=== PATIENT | female | born 1965 | race Caucasian/White ===

== ENCOUNTER → 2017-04-17 | Outpatient (CLI) | payer BC ==
--- NOTE | 2017-04-27 16:24 | WOMENS IMAGING REPORT ---
EXAM DESCRIPTION: BILAT SCREENING MAMMO W/CAD COMPLETED DATE/TIME: 04/17/2017 8:36 am REASON FOR STUDY: ROUTINE BILATERAL SCREENING;Z12.31 Z12.31 ENCNTR SCREEN MAMMOGRAM FOR MALIGNANT N EOPLASM OF ANTHONY COMPARISON: 04/30/2011 outside facility. TECHNIQUE: Standard craniocaudal and mediolateral oblique views of each breast recorded using Right90a l acquisition. LIMITATIONS: None. FINDINGS: No masses, calcifications or architectural distortion. No areas of suspicion. Read with the assistance of CAD. .[facility] - R2 Cenova Version 1.3 .[facility] - R2 Cenova Version 1.3 .[facility] - R2 Cenova Version 2.4 .[facility] [place] R2 Cenova Version 2.4 .[facility] - R2 [employer] Version 9.2 IMPRESSION: NORMAL MAMMOGRAM. BIRADS 1. BREAST DENSITY: b. There are scattered areas of fibroglandular density. BIRAD: 1 NEGATIVE RECOMMENDATION: ROUTINE SCREENING COMMENT: The patient has been notified of the results by letter per MQSA requirements. Additional no tification policies are in place for contacting patient with suspicious or incomplete findings. Quality ID #225: The [employer] recommends an annual screening mammogram for women aged 40 years or over. This facility utilizes a reminder system to ensure that all patients receive reminder letters, and/or direct phone calls for appointments. This includes reminders for routine scr eening mammograms, diagnostic mammograms, or other Breast Imaging Interventions when appropriate. Th is patient will be placed in the appropriate reminder system. The [employer] (ACR) has developed recommendations for screening MRI of the breast s in certain patient populations, to be used in conjunction with mammography. Breast MRI surveillanc e may be appropriate for women with more than 20% lifetime risk of developing breast cancer as deter mined by genetic testing, significant family history of the disease, or history of mantle radiation f or Hodgkins Disease. ACR Practice Guidelines 2008. TECHNICAL DOCUMENTATION: FINDING NUMBER: (1) ASSESSMENT: (1) JOB ID: [id number] [employer]- All Rights Reserved
== END ==
LOC: WI 07:19
PROVIDERS: ATTEND Physician Assistant
DX: Z12.31 Encounter for screening mammogram for malignant neoplasm of breast (principal)
CPT/HCPCS: 77067; G0202

== ENCOUNTER → 2018-02-02 | Outpatient (CLI) | payer BC ==
--- NOTE | 2018-02-02 08:18 | WOMENS IMAGING REPORT ---
EXAM DESCRIPTION: TRANSVAGINAL ULTRASOUND COMPLETED DATE/TIME: 02/02/2018 7:49 am REASON FOR STUDY: R10.32 LLQ PAIN R10.32 LEFT LOWER QUADRANT PAIN COMPARISON: None. TECHNIQUE: Dynamic and static grayscale images acquired of the pelvis via transvaginal approach and recorded on PACS. Additional selected color Doppler and spectral images recorded. LIMITATIONS: None. FINDINGS: UTERUS: Not seen, status post hysterectomy. RIGHT OVARY AND DOPPLER: 2.1 cm hypoechoic roughly ovoid lesion is likely a cyst. This is likely sli ghtly complicated, internal echoes within the cyst. LEFT OVARY AND DOPPLER: Normal size. No mass. FREE FLUID: None noted. OTHER: No other significant finding. MEASUREMENTS: RIGHT OVARY: 3.6 x 2.2 x 3.2 cm. LEFT OVARY: 2.6 x 2.0 x 3.0 cm. IMPRESSION: 2.1 cm probable hemorrhagic right ovarian cyst. Doubtful clinical significance in a pat ient of this age. Given the history of pelvic pain, surveillance followup may be warranted. See bel ow. Status post hysterectomy. Followup of asymptomatic indeterminate ovarian cysts detected by ultrasound in PREMENOPAUSAL patient s Cyst with findings suggestive of, but not classic for, hemorrhagic cyst, endometrioma or dermoid: *6-12 week followup US; if not a resolving hemorrhagic cyst, continued US or MRI followup; if endomet rioma or dermoid still not confirmed, consider surgical consultation Note: If cyst is clinically symptomatic or otherwise concerning, other followup may be warranted. Based on recommendations of the Society for Radiologists in Ultrasound Consensus Conference Statement 2010 on management of asymptomatic ovarian and other adnexal cysts imaged at ultrasound. TECHNICAL DOCUMENTATION: JOB ID: [id number] [employer]- All Rights Reserved Rev Reading location - IP/workstation name: [email or web address]
== END ==
LOC: WI 07:00
PROVIDERS: ATTEND Physician Assistant
DX: R10.32 Left lower quadrant pain (principal); Z90.710 Acquired absence of both cervix and uterus
CPT/HCPCS: 76830

== ENCOUNTER → 2019-05-09 | Outpatient (CLI) | payer OTHER ==
[2019-05-09 15:36] LABS: ABSOLUTE EOSINOPHILS # (AUTO) 0.1 10^3/uL (0.0-0.6); ABSOLUTE LYMPHOCYTES (AUTO) 1.4 10^3/uL (0.5-4.7); ABSOLUTE MONOCYTES (AUTO) 0.7 10^3/uL (0.1-1.4); BASOPHILS % (AUTO) 0.2 % (0-2); EOSINOPHILS % (AUTO) 1.7 % (0-6); HEMATOCRIT 36.8 % (36.0-47.0); HEMOGLOBIN 12.4 g/dL (12.0-15.5); LYMPHOCYTES % (AUTO) 19.2 % (13-45); MEAN CORPUSCULAR HEMOGLOBIN 28.6 pg (27.0-33.4); MEAN CORPUSCULAR HGB CONC 33.8 g/dL (32.0-36.0); MEAN CORPUSCULAR VOLUME 85 fl (80-97); PLATELET COUNT 197 10^3/uL (150-450); RED BLOOD COUNT 4.35 10^6/uL (3.72-5.28); SEGMENTED NEUTROPHILS % (AUTO) 68.9 % (42-78); TOTAL CELLS COUNTED % (AUTO) 100 %; WHITE BLOOD COUNT 7.3 10^3/uL (4.0-10.5)
--- NOTE | 2019-05-09 15:48 | RADIOLOGY REPORT (SQ) ---
EXAM DESCRIPTION: CT ABD/PELVIS WITH IV ORAL COMPLETED DATE/TIME: 05/09/2019 3:04 pm REASON FOR STUDY: LLQ ABDOMINAL PAIN R10.32 LEFT LOWER QUADRANT PAIN COMPARISON: None. TECHNIQUE: CT scan of the abdomen and pelvis performed using helical scanning technique with dynamic intravenous contrast injection. Patient drank oral contrast. Images reviewed with lung, soft tissue , and bone windows. Reconstructed coronal and sagittal MPR images reviewed. Delayed images for evalua tion of the urinary system also acquired. All images stored on PACS. All CT scanners at this facility use dose modulation, iterative reconstruction, and/or weight based d osing when appropriate to reduce radiation dose to as low as reasonably achievable (ALARA). [facility]: Dose Right [facility]: CareDose [facility]: Dose Right [facility]: Teradose 4D [facility]: [employer] CONTRAST TYPE AND DOSE: contrast/concentration: Isovue 350.00 mg/ml; Total Contrast Delivered: 86.0 ml; Total Saline Delivered: 69.0 ml RENAL FUNCTION: Creatinine 0.7 RADIATION DOSE: CT Rad equipment meets quality standard of care and radiation dose reduction techniq ues were employed. CTDIvol: 9.9 - 13.9 mGy. DLP: 1254 mGy-cm.. LIMITATIONS: None. FINDINGS: Along the distal the sigmoid colon in the deep left pelvis, there is inflammatory soft tis av stranding in the pelvic fat, and mildly enlarged left pelvic lymph nodes. Heavy burden of coloni c diverticulosis in this area, with a air in the vagina on axial images 69-74. Patient did not have a pelvic exam today according to office notes, findings are worrisome for diverticulitis with colovag inal fistula formation. No discrete abscess is identified. Findings discussed with LIAM Sylvester. LOWER CHEST: No significant findings. No nodules or infiltrates. LIVER: Normal size. No masses. No dilated ducts. SPLEEN: Normal size. No focal lesions. PANCREAS: No masses. No significant calcifications. No adjacent inflammation or peripancreatic fluid collections. Pancreatic duct not dilated. GALLBLADDER: Surgically absent ADRENAL GLANDS: No significant masses or asymmetry. RIGHT KIDNEY AND URETER: No solid masses. No significant calcifications. No hydronephrosis or hyd roureter. LEFT KIDNEY AND URETER: No solid masses. No significant calcifications. No hydronephrosis or hydr oureter. AORTA AND VESSELS: No aneurysm. No dissection. Renal arteries, SMA, celiac without stenosis. RETROPERITONEUM: No retroperitoneal adenopathy, hemorrhage or masses. BOWEL AND PERITONEAL CAVITY: Patient drank oral contrast. No CT evidence of bowel obstruction or adriana e intraperitoneal air or fluid. Oral contrast had not yet reached the descending colon at the time o f scanning. There is a heavy burden of colonic diverticulosis along the descending and sigmoid colon . Sigmoid colon diverticulitis with possible colovaginal fistula formation as above. No pelvic absc ess. APPENDIX: Normal. PELVIS: No mass. No free fluid. Normal bladder. Post hysterectomy. Right ovary not identified. Le ft ovary adjacent to the area of inflammation in the deep left pelvis on axial image 63/91. ABDOMINAL WALL: No masses. No hernias. BONES: No significant or acute findings. OTHER: No other significant finding. IMPRESSION: Inflammation in the deep left pelvis along the distal descending/ proximal sigmoid colon with possible colovaginal fistula formation. No discrete abscess TECHNICAL DOCUMENTATION: JOB ID: [id number] Quality ID # [id number]: Final reports with documentation of one or more dose reduction techniques (e.g., Au tomated exposure control, adjustment of the mA and/or kV according to patient size, use of iterative reconstruction technique) 2010 [employer]- All Rights Reserved Reading location - IP/workstation name: [email or web address]
[2019-05-09 15:54] LABS: ALBUMIN 3.7 g/dL (3.5-5.0); ALKALINE PHOSPHATASE 56 U/L (38-126); ANION GAP 7 (5-19); ASPARTATE AMINO TRANSFERASE 20 U/L (14-36); BILIRUBIN,DIRECT 0.1 mg/dL (0.0-0.4); BLOOD UREA NITROGEN 10 mg/dL (7-20); CALCIUM 9.3 mg/dL (8.4-10.2); CARBON DIOXIDE 28 mmol/L (22-30); CHLORIDE 102 mmol/L (98-107); GLUCOSE 98 mg/dL (75-110); POTASSIUM 4.2 mmol/L (3.6-5.0); TOTAL PROTEIN 6.7 g/dL (6.3-8.2)
== END ==
LOC: RAD 11:48
PROVIDERS: ATTEND Physician Assistant
DX: K57.30 Diverticulosis of large intestine without perforation or abscess without bleeding (principal); R10.32 Left lower quadrant pain
CPT/HCPCS: 36415; 74177; 80053; 82565; 83690; 85025

== ENCOUNTER 2019-07-01 05:24 | Inpatient (IN) | payer OTHER ==
[2019-06-24 11:32] LABS: ABSOLUTE EOSINOPHILS # (AUTO) 0.1 10^3/uL (0.0-0.6); ABSOLUTE LYMPHOCYTES (AUTO) 1.3 10^3/uL (0.5-4.7); ABSOLUTE MONOCYTES (AUTO) 0.5 10^3/uL (0.1-1.4); ABSOLUTE NEUT (AUTO) 2.7 10^3/uL (1.7-8.2); BASOPHILS % (AUTO) 0.5 % (0-2); EOSINOPHILS % (AUTO) 2.9 % (0-6); HEMATOCRIT 35.6 % (36.0-47.0); HEMOGLOBIN 12.1 g/dL (12.0-15.5); LYMPHOCYTES % (AUTO) 27.6 % (13-45); MEAN CORPUSCULAR HEMOGLOBIN 28.7 pg (27.0-33.4); MEAN CORPUSCULAR HGB CONC 34.1 g/dL (32.0-36.0); MEAN CORPUSCULAR VOLUME 84 fl (80-97); MONOCYTES % (AUTO) 11.4 % (3-13); PLATELET COUNT 216 10^3/uL (150-450); RED BLOOD COUNT 4.23 10^6/uL (3.72-5.28); RED CELL DISTRIBUTION WIDTH 14.3 % (11.5-14.0); SEGMENTED NEUTROPHILS % (AUTO) 57.6 % (42-78); TOTAL CELLS COUNTED % (AUTO) 100 %; WHITE BLOOD COUNT 4.7 10^3/uL (4.0-10.5)
--- NOTE | 2019-06-24 11:45 | RADIOLOGY REPORT (SQ) ---
EXAM DESCRIPTION: CHEST PA/LATERAL COMPLETED DATE/TIME: 06/24/2019 11:09 am REASON FOR STUDY: PRE-OP COMPARISON: None. EXAM PARAMETERS: NUMBER OF VIEWS: two views TECHNIQUE: Digital Frontal and Lateral radiographic views of the chest acquired. RADIATION DOSE: NA LIMITATIONS: none FINDINGS: LUNGS AND PLEURA: No opacities, masses or pneumothorax. No pleural effusion. MEDIASTINUM AND HILAR STRUCTURES: No masses or contour abnormalities. HEART AND VASCULAR STRUCTURES: Heart normal size. No evidence for failure. BONES: No acute findings. HARDWARE: None in the chest. OTHER: No other significant finding. IMPRESSION: NO SIGNIFICANT RADIOGRAPHIC FINDING IN THE CHEST. TECHNICAL DOCUMENTATION: JOB ID: [id number] [employer]- All Rights Reserved Reading location - IP/workstation name: [email or web address]
[2019-06-24 11:56] LABS: ANION GAP 7 (5-19); BLOOD UREA NITROGEN 13 mg/dL (7-20); CARBON DIOXIDE 27 mmol/L (22-30); CHLORIDE 108 mmol/L (98-107); GLUCOSE 73 mg/dL (75-110); POTASSIUM 4.5 mmol/L (3.6-5.0)
--- NOTE | 2019-06-24 19:12 | EKG REPORT ---
SEVERITY:- NORMAL ECG - SINUS RHYTHM : Confirmed by: Sully Goins MD 24-Jun-2019 19:12:01
[~2019-07-01 05:24] MED LIST: ACETAMINOPHEN 325 MG TABLET ONE; LACTATED RINGERS 1000 ML IV PRN; PREGABALIN 50 MG CAPSULE ONE
[2019-07-01] MEDS ORDERED: CEFOXITIN INJ 2 GM VIAL ONE ×3 (05:26→11:02)
[2019-07-01] MEDS ORDERED: HYDROMORPHONE HCL INJ/PF 2 MG/ML AMPULE ONE (07:13)
[2019-07-01] MEDS ORDERED: FENTANYL CITRATE INJ/PF 250 MCG/5 ML AMPULE ONE (07:13)
[2019-07-01] MEDS ORDERED: MIDAZOLAM 2 MG/2 ML INJ ONE (07:13)
[2019-07-01] MEDS ORDERED: PROPOFOL INJ 200 MG/20 ML VIAL IV ONE (07:14)
[2019-07-01] MEDS ORDERED: IBUPROFEN 800 MG in NORMAL SALINE 250 ML IV PRN (07:21)
[2019-07-01] MEDS ORDERED: PREGABALIN 50 MG CAPSULE PO PRN (07:22)
[2019-07-01] MEDS ORDERED: ACETAMINOPHEN 325 MG TABLET PO PRN (07:22)
[2019-07-01] MEDS ORDERED: BUPIVACAINE HCL 0.25 % INJ/PF (2.5 MG/1 ML) 30 ML VIAL ONE ×2 (07:47→10:39)
[2019-07-01] MEDS ORDERED: ONDANSETRON HCL INJ/PF 4 MG/2 ML SDV ONE (09:16)
[2019-07-01] MEDS ORDERED: SUCCINYLCHOLINE CHLORIDE INJ 200 MG/10 ML VIAL ONE (09:16)
[2019-07-01] MEDS ORDERED: ROCURONIUM BROMIDE INJ 50 MG/5 ML VIAL IV ONE (09:16)
[2019-07-01] MEDS ORDERED: DEXAMETHASONE SOD PHOSPHATE INJ 4 MG/1 ML VIAL ONE (09:16)
[2019-07-01] MEDS ORDERED: DIPHENHYDRAMINE HCL 50 MG/ML VIAL IV PRN (09:27)
[2019-07-01] MEDS ORDERED: MEPERIDINE HCL/PF INJ 25 MG/1 ML DISP.SYRIN IV PRN (09:27)
[2019-07-01] MEDS ORDERED: FENTANYL CITRATE INJ/PF 100 MCG/2 ML AMPUL IV PRN ×3 (09:27)
[2019-07-01] MEDS ORDERED: PROMETHAZINE HCL INJ 25 MG/1 ML VIAL IV PRN ×2 (09:27)
[2019-07-01] MEDS ORDERED: METHYLENE BLUE 50 MG/10 ML AMPULE ONE (11:35)
[2019-07-01] MEDS ORDERED: SUGAMMADEX SODIUM 200 MG/2 ML SDV IV ONE (11:42)
[2019-07-01] MEDS ORDERED: EPHEDRINE SULFATE INJ 50 MG/1 ML AMPULE ONE (12:42)
[2019-07-01] MEDS ORDERED: LIDOCAINE 2% INJ-PF (100 MG/5 ML) SYRINGE ONE (12:43)
[2019-07-01] MEDS ORDERED: ONDANSETRON HCL INJ/PF 4 MG/2 ML SDV IV PRN (12:43)
[2019-07-01] MEDS ORDERED: DEXTROSE 5%-LACTATED RINGERS 1,000 ML IV PRN (12:43)
[2019-07-01] MEDS ORDERED: MORPHINE SULFATE 10 MG/ML INJ IV PRN (12:43)
[2019-07-01] MEDS: FENTANYL CITRATE INJ/PF 100 MCG/2 ML AMPUL ONE ×2 (13:16→13:23)
[2019-07-01] MEDS ORDERED: ACETAMINOPHEN 1,000 MG/100 ML RTUPB IV ONE ×2 (13:20→13:30)
[2019-07-01] MEDS: KETOROLAC TROMETHAMINE INJ/PF 30 MG/1 ML SDV IV SCH ×2 (15:23→22:19)
[2019-07-01] MEDS: CEFOXITIN SODIUM 2 GM in DEXTROSE 5%-WATER 100 ML IV SCH (17:25)
[2019-07-01] MEDS: FAMOTIDINE INJ/PF 20 MG/2 ML SDV IV SCH (22:19)
[2019-07-02] MEDS ORDERED: NORMAL SALINE 1000 ML 1,000 ML IV ONE (00:15)
[2019-07-02] MEDS: CEFOXITIN SODIUM 2 GM in DEXTROSE 5%-WATER 100 ML IV SCH (01:23)
[2019-07-02 05:08] LABS: ABSOLUTE LYMPHOCYTES (AUTO) 0.9 10^3/uL (0.5-4.7); ABSOLUTE MONOCYTES (AUTO) 1.1 10^3/uL (0.1-1.4); ABSOLUTE NEUT (AUTO) 8.4 10^3/uL (1.7-8.2); BASOPHILS % (AUTO) 0.1 % (0-2); HEMATOCRIT 29.1 % (36.0-47.0); HEMOGLOBIN 10.3 g/dL (12.0-15.5); LYMPHOCYTES % (AUTO) 8.4 % (13-45); MEAN CORPUSCULAR HEMOGLOBIN 29.8 pg (27.0-33.4); MEAN CORPUSCULAR HGB CONC 35.3 g/dL (32.0-36.0); MEAN CORPUSCULAR VOLUME 84 fl (80-97); MONOCYTES % (AUTO) 10.5 % (3-13); PLATELET COUNT 170 10^3/uL (150-450); RED BLOOD COUNT 3.46 10^6/uL (3.72-5.28); RED CELL DISTRIBUTION WIDTH 14.7 % (11.5-14.0); TOTAL CELLS COUNTED % (AUTO) 100 %; WHITE BLOOD COUNT 10.4 10^3/uL (4.0-10.5)
[2019-07-02] MEDS: KETOROLAC TROMETHAMINE INJ/PF 30 MG/1 ML SDV IV SCH ×3 (05:29→21:03)
[2019-07-02 05:30] LABS: BLOOD UREA NITROGEN 7 mg/dL (7-20); CALCIUM 7.8 mg/dL (8.4-10.2); CARBON DIOXIDE 24 mmol/L (22-30); CHLORIDE 108 mmol/L (98-107); GLUCOSE 127 mg/dL (75-110); POTASSIUM 3.6 mmol/L (3.6-5.0)
[2019-07-02 05:45] LABS: ANION GAP 4 (5-19)
[2019-07-02] MEDS: ENOXAPARIN SODIUM INJ 40 MG/0.4 ML DISP.SYRIN SUBCUT SCH (09:16)
[2019-07-02] MEDS: FAMOTIDINE INJ/PF 20 MG/2 ML SDV IV SCH ×2 (09:16→21:03)
--- NOTE | 2019-07-02 17:35 | PDOC PROGRESS REPORT ---
Subjective Progress Note for:: 07/02/19 Reason For Visit: N82.4 OTHER FEMALE INTESTINAL-GENITAL TRACT FISTUL Physical Exam Vital Signs: Temp Pulse Resp BP Pulse Ox 98.3 F 79 15 104/57 L 99 07/02/19 16:00 07/02/19 16:00 07/02/19 16:00 07/02/19 16:00 07/02/19 16:00 Intake & Output 07/01/19 07/02/19 07/03/19 06:59 06:59 05:59 Intake Total 0 7115 360 Output Total 2960 Balance 0 4155 360 Weight 79.4 kg Results Laboratory Results: 07/02/19 04:33 07/02/19 04:33 07/02/19 07/02/19 04:33 04:33 WBC 10.4 RBC 3.46 L Hgb 10.3 L Hct 29.1 L MCV 84 MCH 29.8 MCHC 35.3 RDW 14.7 H Plt Count 170 Seg Neutrophils % 81.0 H Sodium 135.9 L Potassium 3.6 Chloride 108 H Carbon Dioxide 24 Anion Gap 4 L BUN 7 Creatinine 0.62 Est GFR ( Amer) > 60 Glucose 127 H Calcium 7.8 L Impressions: Chest X-Ray 06/24/19 10:56 IMPRESSION: NO SIGNIFICANT RADIOGRAPHIC FINDING IN THE CHEST. Assessment & Plan - Diagnosis (1) History of diverticulitis Is this a current diagnosis for this admission?: Yes (2) Colovaginal fistula Is this a current diagnosis for this admission?: Yes - Time Time Spent with patient: Less than 15 minutes - Plan Summary Plan Summary: This is a 53-year-old female status post laparoscopic sigmoid colon resection with primary anastomosis and closure of a colovaginal fistula. The patient also experienced pneumaturia, concerning for a colovesical fistula, however no obvious colovesical fistula could be identified at the time of operation. The patient is doing reasonably well today. She reports passing a small amount of flatus. She is tolerating full liquids. I have encouraged her to continue with ambulation. I will discontinue her IV fluids today. I have instructed her to use her incentive spirometer 10 times every hour. When she begins to pass more flatus, will advance diet. Maintain Carter for 1 week due to likely presence of a small colovesical fistula.
[2019-07-03] MEDS: KETOROLAC TROMETHAMINE INJ/PF 30 MG/1 ML SDV IV SCH ×3 (05:01→21:19)
--- NOTE | 2019-07-03 08:24 | PDOC PROGRESS REPORT ---
Subjective Progress Note for:: 07/03/19 Reason For Visit: N82.4 OTHER FEMALE INTESTINAL-GENITAL TRACT FISTUL Physical Exam Vital Signs: Temp Pulse Resp BP Pulse Ox 98.2 F 87 16 108/52 L 94 07/02/19 23:13 07/02/19 23:13 07/02/19 23:13 07/02/19 23:13 07/02/19 23:13 Intake & Output 07/02/19 07/03/19 07/04/19 07:59 06:59 06:59 Intake Total Output Total Balance Weight Results Laboratory Results: 07/02/19 04:33 07/02/19 04:33 Impressions: Chest X-Ray 06/24/19 10:56 IMPRESSION: NO SIGNIFICANT RADIOGRAPHIC FINDING IN THE CHEST. Assessment & Plan - Diagnosis (1) History of diverticulitis Is this a current diagnosis for this admission?: Yes (2) Colovaginal fistula Is this a current diagnosis for this admission?: Yes - Time Time Spent with patient: Less than 15 minutes - Plan Summary Plan Summary: This is a 53-year-old female status post laparoscopic sigmoid colon resection with primary anastomosis and closure of a colovaginal fistula. The patient also experienced pneumaturia, concerning for a colovesical fistula, however no obvious colovesical fistula could be identified at the time of operation. The patient is doing very well today. She reports passing a large amount of flatus. She is tolerating full liquids. She denies nausea or vomiting. I have encouraged her to continue with ambulation. I have instructed her to use her incentive spirometer 10 times every hour. Advance diet. Maintain Carter for 1 week due to likely presence of a small colovesical fistula. If the patient continues to improve, possible discharge tomorrow.
[2019-07-03] MEDS: FAMOTIDINE INJ/PF 20 MG/2 ML SDV IV SCH ×2 (09:24→21:19)
[2019-07-03] MEDS: ENOXAPARIN SODIUM INJ 40 MG/0.4 ML DISP.SYRIN SUBCUT SCH (09:26)
[2019-07-04] MEDS: KETOROLAC TROMETHAMINE INJ/PF 30 MG/1 ML SDV IV SCH (05:01)
--- NOTE | 2019-07-04 08:17 | PDOC DISCHARGE SUMMARY ---
General - Admit/Disc Date/PCP Admission Date/Primary Care Provider: 07/01/19 05:24 NAVEED STEARNS MD Discharge Date: 07/04/19 - Discharge Diagnosis Final Diagnosis: h/o diverticulitis, colovaginal fistula - Assessment Summary: 53 y/o F with a h/o severe diverticulitis and a colovaginal fistula. She underwent robot assisted sigmoid colectomy. She did very well after surgery and was taken to the floor in stable condition. She did very well. By POD #2 she had return of bowel function. She was started on a regular diet. She tolerated a regular diet. By POD #3 she was ambulating, tolerating a diet, and ambulating. At this point she has reached maximal hospital benefit and is fit for discharge. - Additional Information Resuscitation Status: Full Code Discharge Diet: As Tolerated Discharge Activity: No Lifting Over 10 Pounds, No Lifting/Push/Pulling Referrals: NAVEED STEARNS MD [Primary Care Provider] - Home Medications: Levothyroxine Sodium 50 mcg PO Q6AM 07/01/19 Additional Information: d/c home. Diet: as tolerated, Activity: no lifting >10 lbs x 6 weeks. F/u one week. Leave flores in until seen by me in clinic. OK to shower. No tub baths or swimming pools x 2 weeks. [place] 10/325mg po q6 hours PRN for pain. History of Present Illiness History of Present Illness: IDA ORR is a 53 year old female Physical Exam Vital Signs: Temp Pulse Resp BP Pulse Ox 98.1 F 78 16 107/50 L 98 07/03/19 23:54 07/03/19 23:54 07/03/19 23:54 07/03/19 23:54 07/03/19 23:54 Intake & Output 07/03/19 07/04/19 07/05/19 06:59 06:59 06:59 Intake Total 1050 Output Total 650 Balance 400 Weight 80.4 kg Results Laboratory Results: WBC 10.4 10^3/uL (4.0-10.5) 07/02/19 04:33 RBC 3.46 10^6/uL (3.72-5.28) L 07/02/19 04:33 Hgb 10.3 g/dL (12.0-15.5) L 07/02/19 04:33 Hct 29.1 % (36.0-47.0) L 07/02/19 04:33 MCV 84 fl (80-97) 07/02/19 04:33 MCH 29.8 pg (27.0-33.4) 07/02/19 04:33 MCHC 35.3 g/dL (32.0-36.0) 07/02/19 04:33 RDW 14.7 % (11.5-14.0) H 07/02/19 04:33 Plt Count 170 10^3/uL (150-450) 07/02/19 04:33 Lymph % (Auto) 8.4 % (13-45) L 07/02/19 04:33 [place] % (Auto) 10.5 % (3-13) 07/02/19 04:33 Eos % (Auto) 0.0 % (0-6) 07/02/19 04:33 Baso % (Auto) 0.1 % (0-2) 07/02/19 04:33 Absolute Neuts (auto) 8.4 10^3/uL (1.7-8.2) H 07/02/19 04:33 Absolute Lymphs (auto) 0.9 10^3/uL (0.5-4.7) 07/02/19 04:33 Absolute Monos (auto) 1.1 10^3/uL (0.1-1.4) 07/02/19 04:33 Absolute Eos (auto) 0.0 10^3/uL (0.0-0.6) 07/02/19 04:33 Absolute Basos (auto) 0.0 10^3/uL (0.0-0.2) 07/02/19 04:33 Seg Neutrophils % 81.0 % (42-78) H 07/02/19 04:33 Sodium 135.9 mmol/L (137-145) L 07/02/19 04:33 Potassium 3.6 mmol/L (3.6-5.0) 07/02/19 04:33 Chloride 108 mmol/L (98-107) H 07/02/19 04:33 Carbon Dioxide 24 mmol/L (22-30) 07/02/19 04:33 Anion Gap 4 (5-19) L 07/02/19 04:33 BUN 7 mg/dL (7-20) 07/02/19 04:33 Creatinine 0.62 mg/dL (0.52-1.25) 07/02/19 04:33 Est GFR ( Amer) > 60 (>60) 07/02/19 04:33 Est GFR (MDRD) Non-Af > 60 (>60) 07/02/19 04:33 Glucose 127 mg/dL (75-110) H 07/02/19 04:33 Calcium 7.8 mg/dL (8.4-10.2) L 07/02/19 04:33 Blood Type A POSITIVE 07/01/19 06:19 Antibody Screen NEGATIVE 07/01/19 06:19 Impressions: Chest X-Ray 06/24/19 10:56 IMPRESSION: NO SIGNIFICANT RADIOGRAPHIC FINDING IN THE CHEST.
[2019-07-04] MEDS ORDERED: ONDANSETRON HCL INJ/PF 4 MG/2 ML SDV IV PRN (10:00)
[2019-07-04] MEDS ORDERED: FAMOTIDINE INJ/PF 20 MG/2 ML SDV IV SCH (10:00)
[2019-07-04 12:55] VITALS: BP 111/55
--- NOTE | 2019-07-05 08:34 | Operative Report ---
Nonrecallable Operative Report DATE OF SURGERY: 07/01/19 PREOPERATIVE DIAGNOSIS: 1. History of diverticulitis. 2. colovaginal fistula. 3. Possible colovesical fistula. POSTOPERATIVE DIAGNOSIS: 1. History of diverticulitis. 2. Colovaginal fistula, repaired. 3. No significant evidence to suggest colovesical fistula. OPERATION: 1. Robot-assisted laparoscopic sigmoid colon resection. 2. Robot- assisted laparoscopic takedown and repair of colovesical fistula. 3. Stapled end to side colorectal anastomosis with 29 EEA stapler. 4. Flexible sigmoidoscopy. SURGEON: TEREZA ERIC 1ST CHILD & ADOLESCENT PSYCHIATRIST: DAYANARA POLANCO ANESTHESIA: GA TISSUE REMOVED OR ALTERED: Sigmoid colon COMPLICATIONS: None apparent ESTIMATED BLOOD LOSS: 75 cc PROCEDURE: Drains/implants: None. Procedure in detail: After informed consent was obtained, the patient was brought into the operating room and laid in the low lithotomy position. The area of the abdomen was prepped and draped in a normal sterile fashion. An incision was created superior to and right of the umbilicus. Dissection was carried through the subcutaneous tissue using blunt dissection. The anterior sheath was incised, the rectus muscle was displaced laterally, and the posterior sheath was incised. The abdomen was entered sharply. The balloon trocar was inserted, and pneumoperitoneum was achieved. Next, a 12 mm right lower quadrant trocar was placed, to accommodate the robotic stapler. 2 more 8 mm trochars were placed in the left abdomen. This was done under direct laparoscopic visualization. Next, the robot was brought over the patient and docked appropriately. I then assumed my position at the surgeon's console. The small bowel was swept out of the pelvis. The sigmoid colon was then inspected. There was a large amount of adhesion of the sigmoid colon to the left lateral pelvic sidewall, as well as over the anterior pelvis (in the area of the proximal vagina). Attention was then turned to freeing of the sigmoid colon. Left lateral attachments were divided sharply, and the sigmoid colon was rotated medially. The left ureter was identified and spared along its course. Dissection was carried distally, into the pelvis. The sigmoid colon was freed from the anterior pelvis. Upon mobilization of the sigmoid colon, the colovaginal fistula was easily identified. After the colon was completely freed, it was divided distally at approximately the rectosigmoid junction. This was done using the robotic stapling device. Next, the sigmoid colon was elevated anteriorly and the mesentery was divided adjacent to the colon using the robotic vessel sealer. The mesentery was divided up to a portion of healthy descending colon. The descending colon was marked with a suture for easy identification. Next, attention was turned to closure of the colovaginal fistula. Approximately 400 cc of saline with methylene blue was instilled into the bladder, to evaluate for colovesical fistulae. No obvious colovesical fistula could be identified during this maneuver. After this was confirmed, attention was turned to closure of the colovaginal fistula. A 2-0 V Lock Suture was used in simple running fashion to close the vaginal defect. This was done in 2 layers. Once this was completed, the robot was undocked, and attention was turned to creation of the anastomosis. I then scrubbed back into the case. A Pfannenstiel incision was created within the bounds of a previous scar. Dissection was carried down through the subcutaneous tissue using sharp and blunt dissection. A midline fascial incision was then created. The abdomen was entered sharply. The Chris wound retractor was placed onto the patient, and the colon was exteriorized. The colon was divided at the suture jazzmine that was previously placed. EEA sizers were used to size the distal descending colon. The 25 and 29 EEA sizers passed easily. Secondary to this, the 29 EEA stapler was chosen. The 29 anvil was placed into the descending colon. It was sutured in place with a pursestring 2- 0 Vicryl suture. The colon was then returned to the abdominal cavity, and pneumoperitoneum was again achieved. The 29 EEA stapler was then inserted into the anus. It was passed up the rectum and to the staple line. Due to the configuration of the rectum, it was felt prudent to create an end to side anastomosis. End of the descending colon to side of the rectum. This would allow the anastomosis to lay in a most favorable position. The EEA stapler spike was brought through the antimesenteric side of the rectum approximately 2 cm proximal to the staple line on the rectum. The anvil was to the stapler and closed. The stapler was then fired according to cdl flatbed truck driver recommendations. The stapler was removed and examined on the back table. There were 2 complete doughnut rings of tissue within the stapler. Next, attention was turned to examination of the anastomosis via flexible sigmoidoscopy. A laparoscopic bowel clamp was used to clamp proximal to the anastomosis. The pelvis was filled with fluid. The flexible sigmoidoscopy was then inserted into the anus and passed up to the level of the anastomosis. Air was insufflated. Air was found to be escaping through the anus, but not escaping through the anastomosis, into the abdomen. This confirmed that the anastomosis was air and watertight. It was inspected visually, and appeared in good order. Once this was confirmed, air was suctioned from the rectum, the scope was removed, and I scrubbed back into the case. The 12 mm trocar sites (right lower quadrant and supraumbilical) were closed using 0 Vicryl suture in [id number] fashion with the aid of the Shabbir- Marissa device. Once these were closed, the Chris wound retractor was removed. The lower midline fascia was closed using #1 PDS suture in simple running fashion. The overlying skin was closed using skin mandy. Dressings were placed, and the procedure was concluded. All sponge, instrument, and needle counts were correct x2. Condition: Stable. Dayanara Polanco PA-C was scrubbed and present the entirety of the procedure. She assisted with all portions of the procedure including placement of the trochars, docking the robot, exchanging the robotic instruments, opening of the fascia, removal of the colon, placement of the anvil, marrying of the stapler, creation of the anastomosis, closure of the fascia, and closure of the skin.
== END 2019-07-04 09:56 | disposition home or self-care (01) | DRG 330 ==
LOC: INOR 05:24 → 5 14:42
PROVIDERS: ADMIT Surgery; ATTEND Surgery
PROC: 0DBN4ZZ Excision of Sigmoid Colon, Percutaneous Endoscopic Approach (ICD-10-PCS; 2019-07-01)
PROC: 8E0W3CZ Robotic Assisted Procedure of Trunk Region, Percutaneous Approach (ICD-10-PCS; 2019-07-01)
PROC: 0DJD8ZZ Inspection of Lower Intestinal Tract, Via Natural or Artificial Opening Endoscopic (ICD-10-PCS; 2019-07-01)
PROC: 0UQG4ZZ Repair Vagina, Percutaneous Endoscopic Approach (ICD-10-PCS; principal; 2019-07-01 07:30)
DX: N82.3 Fistula of vagina to large intestine (principal); K57.32 Diverticulitis of large intestine without perforation or abscess without bleeding; R39.89 Other symptoms and signs involving the genitourinary system; E03.9 Hypothyroidism, unspecified; G43.909 Migraine, unspecified, not intractable, without status migrainosus; Z98.84 Bariatric surgery status; Z87.891 Personal history of nicotine dependence
CPT/HCPCS: 36415; 71046; 80048; 840; 85025; 86850; 86900; 86901; 88307; 93005; 93010; 94799; J0131; J0330; J0694; J1100; J1170; J1650; J1741; J1885; J2001; J2250; J2270; J2405; J2704; J3010; J3490; J7030; J7050; J7060; J7121; Q9968; S0028

== ENCOUNTER 2019-10-16 19:04 | Emergency (ER) | payer OTHER ==
[2019-10-16 19:17] VITALS: BP 134/60
--- NOTE | 2019-10-16 19:32 | ER Document Report ---
ED Animal Bite - General Chief Complaint: Dog Bite Stated Complaint: DOG BITE/LEFT FOREARM Time Seen by Provider: 10/16/19 19:26 Primary Care Provider: NAVEED STEARNS MD [Primary Care Provider] - Follow up in 3-5 days Notes: 54-year-old female presents with dog bite to left forearm. The dog that bit her was her own dog and is up-to-date on vaccinations. Patient states she had her last tetanus vaccination approximately 4 years ago. Patient states this occurred a few hours prior to arrival. Patient states she cleaned it off and placed some Neosporin on the wound. Denies any pain at this time. TRAVEL OUTSIDE OF THE [place] IN LAST 30 DAYS: No - Related Data Allergies/Adverse Reactions: No Known Allergies Allergy (Verified 07/01/19 06:11) Past Medical History - Social History Smoking Status: Unknown if Ever Smoked Family History: None Neurological Medical History: Denies: Hx Cerebrovascular Accident, Hx Seizures, Hx Parkinson's Disease Endocrine Medical History: Reports: Hx Hypothyroidism - 2017. Denies: Hx Graves' Disease, Hx Hyperthyroidism Renal/ Medical History: Reports: Hx Kidney Stones. Denies: Hx End Stage Renal Disease, Hx Peritoneal Dialysis Malignancy Medical History: Denies: Hx Leukemia GI Medical History: Denies: Hx Crohn's Disease, Hx Gastroesophageal Reflux Disease, Hx Hiatal Hernia, Hx Irritable Bowel, Hx Liver Failure, Hx Pancreatitis, Hx Ulcer Musculoskeletal Medical History: Denies Hx Multiple Sclerosis, Denies Hx Systemic Lupus Erythematosus Psychiatric Medical History: Denies: Hx Dementia Infectious Medical History: Denies: Hx HIV Past Surgical History: Reports: Hx Cholecystectomy, Hx Gastric Bypass Surgery - 2003, Hx Hysterectomy. Denies: Hx Appendectomy, Hx Bowel Surgery, Hx Section, Hx Colostomy, Hx Coronary Artery Bypass Graft, Hx Herniorrhaphy, Hx Mastectomy, Hx Pacemaker, Hx Tonsillectomy, Hx Tubal Ligation Review of Systems - Review of Systems Notes: Constitutional: Negative for fever. HENT: Negative for sore throat. Eyes: Negative for visual changes. Cardiovascular: Negative for chest pain. Respiratory: Negative for shortness of breath. Gastrointestinal: Negative for abdominal pain, vomiting or diarrhea. Genitourinary: Negative for dysuria. Musculoskeletal: Negative for back pain. Skin: Positive for dog bite. Negative for rash. Neurological: Negative for headaches, weakness or numbness. 10 point ROS negative except as marked above and in HPI. Physical Exam - Vital signs Vitals: Temp Pulse Resp BP Pulse Ox 98.6 F 66 16 134/60 H 100 10/16/19 19:15 10/16/19 19:15 10/16/19 19:15 10/16/19 19:15 10/16/19 19:15 - Notes Notes: GENERAL: Well-appearing, well-nourished and in no acute distress. HEAD: Atraumatic, normocephalic. EYES: Extraocular movements intact, sclera anicteric, conjunctiva are normal. NECK: Normal range of motion, supple without lymphadenopathy or JVD. EXTREMITIES: Normal range of motion, no pitting or edema. No clubbing or cyanosis. Left forearm: Approx 1 cm puncture laceration noted. Mild skin tear surrounding. NEUROLOGICAL: Cranial nerves II through XII grossly intact. Normal speech, normal gait. PSYCH: Normal mood, normal affect. SKIN: Warm, Dry, normal turgor, no rashes or lesions noted. Course - Re-evaluation Re-evalutation: 10/16/19 Dog bite by pt's dog. Pt's dog is up to date on vaccinations. Pt states she is up to date on tetanus shot (4 years ago). Approx 1 cm puncture wound noted to left forearm. Distal neurovascular intact. Area irrigated well with saline/shurclens and nonadherent dressing applied with bactroban. Pt given strict return precautions and given close follow up with PCP. Pt placed on Augmentin. Pt voices understanding and agrees with plan of care. - Vital Signs Vital signs: Temp Pulse Resp BP Pulse Ox 98.6 F 66 16 134/60 H 100 10/16/19 19:15 10/16/19 19:15 10/16/19 19:15 10/16/19 19:15 10/16/19 19:15 Discharge - Discharge Clinical Impression: Dog bite of left forearm Qualifiers: Encounter type: initial encounter Qualified Code(s): S51.852A - Open bite of left forearm, initial encounter Condition: Stable Disposition: HOME, SELF-CARE Instructions: Animal Bites ([facility]) Additional Instructions: Please keep area clean. Please keep area covered when out. Please watch for signs of infection which include redness to area, increased swelling, increased pain, pus drainage, area being hotter to touch than surrounding skin. Please follow-up with your primary care doctor in 2 to 3 days. Return immediately to ER if you start having any worsening symptoms, including signs of infection, fever, inability to move your hand, or any other symptoms that are concerning to you. Prescriptions: Amoxicillin/Potassium Clav [Augmentin 875-125 Tablet] 1 tab PO BID #20 tab Referrals: NAVEED STEARNS MD [Primary Care Provider] - Follow up in 3-5 days
[2019-10-16] MEDS ORDERED: HYDROCODONE/ACETAMINOPHEN 5-325 MG (6 TAB/ER DISP) PO PRN (19:33)
== END 2019-10-16 19:57 | disposition home or self-care (01) ==
LOC: ER 19:04
DX: S51.852A Open bite of left forearm, initial encounter (principal); W54.0XXA Bitten by dog, initial encounter; Y92.009 Unspecified place in unspecified non-institutional (private) residence as the place of occurrence of the external cause; Z87.442 Personal history of urinary calculi
CPT/HCPCS: 99283

== ENCOUNTER → 2019-11-02 | Outpatient (CLI) | payer OTHER ==
--- NOTE | 2019-11-02 09:15 | WOMENS IMAGING REPORT ---
EXAM DESCRIPTION: 3D SCREENING MAMMO BILAT COMPLETED DATE/TIME: 11/02/2019 8:49 am REASON FOR STUDY: Z12.31 SCREENING MAMMO Z12.31 ENCNTR SCREEN MAMMOGRAM FOR MALIGNANT NEOPLASM OF B RE COMPARISON: 2016 EXAM PARAMETERS: Views: Standard craniocaudal and mediolateral oblique views of each breast recorded using digital acquisition and breast tomosynthesis. Read with the assistance of CAD. .FORMERLY [facility] - [employer] Version 9.2 LIMITATIONS: None. FINDINGS: No suspicious masses, suspicious calcifications or architectural distortion. No areas of c oncern. IMPRESSION: NEGATIVE MAMMOGRAM. BIRADS 1. BREAST DENSITY: b. There are scattered areas of fibroglandular density. BIRAD: ASSESSMENT: 1 NEGATIVE RECOMMENDATION: ROUTINE SCREENING Please continue yearly bilateral screening mammography/tomosynthesis in October 2020 COMMENT: The patient has been notified of the results by letter per MQSA requirements. Additional no tification policies are in place for contacting patient with suspicious or incomplete findings. Quality ID #[id number]: [employer] recommends an annual screening mammogram for women aged 40 years or over. This facility utilizes a reminder system to ensure that all patients receive reminder letters, and/or direct phone calls for appointments. This includes reminders for routine scr eening mammograms, diagnostic mammograms, or other Breast Imaging Interventions when appropriate. Th is patient will be placed in the appropriate reminder system. TECHNICAL DOCUMENTATION: FINDING NUMBER: (1) ASSESSMENT: (1) JOB ID: [id number] 2010 [employer]- All Rights Reserved Reading location - IP/workstation name: [email or web address]
== END ==
LOC: WI 08:30
PROVIDERS: ATTEND Physician Assistant
DX: Z12.31 Encounter for screening mammogram for malignant neoplasm of breast (principal)
CPT/HCPCS: 77063; 77067

== ENCOUNTER → 2019-12-08 | Outpatient (CLI) | payer OTHER ==
[2019-12-08 14:19] LABS: ABSOLUTE EOSINOPHILS # (AUTO) 0.2 10^3/uL (0.0-0.6); ABSOLUTE LYMPHOCYTES (AUTO) 1.4 10^3/uL (0.5-4.7); ABSOLUTE MONOCYTES (AUTO) 0.5 10^3/uL (0.1-1.4); ABSOLUTE NEUT (AUTO) 3.1 10^3/uL (1.7-8.2); BASOPHILS % (AUTO) 0.4 % (0-2); EOSINOPHILS % (AUTO) 3.3 % (0-6); HEMATOCRIT 32.4 % (36.0-47.0); HEMOGLOBIN 11.2 g/dL (12.0-15.5); LYMPHOCYTES % (AUTO) 26.9 % (13-45); MEAN CORPUSCULAR HEMOGLOBIN 26.8 pg (27.0-33.4); MEAN CORPUSCULAR HGB CONC 34.6 g/dL (32.0-36.0); MEAN CORPUSCULAR VOLUME 78 fl (80-97); MONOCYTES % (AUTO) 9.6 % (3-13); PLATELET COUNT 215 10^3/uL (150-450); RED BLOOD COUNT 4.18 10^6/uL (3.72-5.28); RED CELL DISTRIBUTION WIDTH 16.1 % (11.5-14.0); SEGMENTED NEUTROPHILS % (AUTO) 59.8 % (42-78); TOTAL CELLS COUNTED % (AUTO) 100 %; WHITE BLOOD COUNT 5.2 10^3/uL (4.0-10.5)
[2019-12-08 14:38] LABS: IRON(TIBC) 26.9 ug/dL (37-170)
[2019-12-08 15:13] LABS: FERRITIN 7.03 ng/mL (11.1-264.0)
== END ==
LOC: OD 13:49
PROVIDERS: ATTEND Physician Assistant
DX: D64.9 Anemia, unspecified (principal)
CPT/HCPCS: 36415; 82728; 83540; 83550; 85025

== ENCOUNTER → 2020-05-01 | Outpatient (CLI) | payer OTHER ==
--- NOTE | 2020-05-01 12:19 | RADIOLOGY REPORT (SQ) ---
EXAM DESCRIPTION: CHEST PA/LATERAL IMAGES COMPLETED DATE/TIME: 05/01/2020 12:09 pm REASON FOR STUDY: COUGH COMPARISON: 06/24/2019. EXAM PARAMETERS: NUMBER OF VIEWS: two views TECHNIQUE: Digital Frontal and Lateral radiographic views of the chest acquired. RADIATION DOSE: NA LIMITATIONS: none FINDINGS: LUNGS AND PLEURA: No opacities, masses or pneumothorax. No pleural effusion. MEDIASTINUM AND HILAR STRUCTURES: No masses or contour abnormalities. HEART AND VASCULAR STRUCTURES: Heart normal size. No evidence for failure. BONES: No acute findings. HARDWARE: None in the chest. OTHER: No other significant finding. IMPRESSION: NO SIGNIFICANT RADIOGRAPHIC FINDING IN THE CHEST. TECHNICAL DOCUMENTATION: JOB ID: [id number] 2010 [email or web address]- All Rights Reserved Reading location - IP/workstation name: [email or web address]
== END ==
LOC: OD 11:41
PROVIDERS: ATTEND Physician Assistant
DX: R05 Cough (principal)
CPT/HCPCS: 71046